=== PATIENT | female | born 1960 | race Caucasian/White ===

== ENCOUNTER 2020-03-29 10:15 | Outpatient (RCR) | payer OTHER, SELFPAY ==
--- NOTE | 2020-03-29 10:56 | PC.NURSE ---
Pt opened in treatment team.
--- NOTE | 2020-03-29 11:55 | PC.NURSE ---
03/29/20- Pt 's first day. Pt attended 1st group and then left a message for TW stating that she is not going to continue with the program. TW called pt back- pt reported that this is not something she feels she needs right now, she is safe, she will continue to see her therapist and outpatient prescriber. TW informed pt to call back if she changes her mind. Pt was agreeable.
== END 2020-03-29 23:55 | disposition left against medical advice (07) ==
LOC: HO.PHPA 10:15
PROVIDERS: Visit Provider Psychiatry & Neurology Psychiatry
DX: F32.9 Major depressive disorder, single episode, unspecified (principal)
CPT/HCPCS: 90853